=== PATIENT | female | born 1955 | race Caucasian/White ===

== ENCOUNTER → 2019-04-03 | Day surgery (SDC) | payer OTHER ==
[~2019-04-03] MED LIST: BUPR100T7 PO; CRESTOR5 MG PO; EMPA10TA PO; INSU100I13 SQ; IV RINGERS SOLUTION,LACTATED 1,000 ML IV SCH; LAMO25TA5 PO; LISI2.5T PO; MULT-245 PO; PROPOFOL 10,000 MCG/ML (20ML) VIAL IV ONE; PROPOFOL 40 ML IV ONE; SITA1TAB7 PO
[2019-04-03 09:40] VITALS: BP 103/60
--- NOTE | 2019-04-04 15:09 | PATHOLOGY ---
[facility] Accession Number: [id number] . 01 Material submitted: . hepatic flexure - HEPATIC FLEXURE X2 . 01 Clinical history: . Screening . 02 Diagnosis: Colon biopsies, hepatic flexure x3: - Tubular adenomas (2). - Segment of colonic mucosa containing a mucosal-associated lymphoid aggregate (1). . (JPM:stephanie; 04/04/2019) QMS 04/04/2019 0935 Local . 02 Comment: There is no high grade dysplasia or evidence of malignancy. . 02 Electronically signed: . Sandip Matos MD, Pathologist NPI- [id number] . 01 Gross description: . Received in formalin labeled "Do Maldonado, hepatic flexure x2," are 3 segments of kwong soft tissue measuring 1.0 x 0.8 x 0.4 cm in aggregate dimensions and ranging from 0.4 to 0.5 cm in maximum dimension. The specimen is submitted entirely in cassette A1. (TSD; 04/03/2019) TOB/TOB 04/03/2019 1656 Local . 02 Pathologist provided ICD-10: D12.3 . 02 CPT . 287430 Specimen Comment: A courtesy copy of this report has been sent to [phone] Specimen Comment: [id number] Specimen Comment: Report sent to / DR PICHARDO Performed at: 01 [facility] [address], [place] [id number] MD Gabriele Brewer MD Phone: [phone] Performed at: 02 [facility] [address] [place], [place] [id number] MD Sandip Matos MD Phone: [phone]
== END | disposition home or self-care (01) ==
LOC: SURG 06:57
PROVIDERS: ATTEND Internal Medicine Gastroenterology
DX: Z12.11 Encounter for screening for malignant neoplasm of colon (principal); D12.3 Benign neoplasm of transverse colon; K57.30 Diverticulosis of large intestine without perforation or abscess without bleeding; I10 Essential (primary) hypertension; E11.9 Type 2 diabetes mellitus without complications; F32.9 Major depressive disorder, single episode, unspecified; F41.9 Anxiety disorder, unspecified; Z98.890 Other specified postprocedural states; Z79.899 Other long term (current) drug therapy
CPT/HCPCS: 45380; 82947; J2704; J7120